=== PATIENT | female | born 2000 | race Caucasian/White ===

== ENCOUNTER 2019-05-02 10:47 | Inpatient (IN) ==
--- NOTE | 2019-05-02 12:07 | Emergency Department Note ---
Entered by Isabel Casiano acting as a scribe for Vinny Vergara DO History of Present Illness General Chief complaint: Mental Health Evaluation Stated complaint: DIZZY - SICK IN STOMACH - CRAMPS - SHAKY - HEADACH Time Seen by Provider: 05/02/19 11:24 Source: patient Limitations: no limitations History of Present Illness Provider complaint: Shakiness Onset (ago): day(s) 2 Location: head and abdomen Pain Consistency: + constant Maximum Pain Intensity: 6 Quality: + constant Associated symptoms: + diaphoresis, + fever/chills (chills), + headaches and + other (Positive: abdominal pain, shakiness, unable to sit still. Negative: SI, HI) The patient is a 19 year old female with no significant past medical history who presents to the ED with complaints of mental health evaluation. The patient reports she overdosed on Effexor 2 days ago because she was having an anxiety attack. She notes she was shaking and blacking out too much which caused her to take 5-10 pills of Effexor but then tried to throw them up. The patient reports she eventually called [facility] on and was released the same day. She states that by the time she got home she started feeling funny and was unable to sit still. The patient states she sweating but also freezing at the same time. She reports she has a headache, abdominal pain, and shakiness. The patient states she panics when she stands for too long and additionally states she hears someone saying her name and sees bugs on the wall. She notes she is unsure whether the medication triggered her schizophrenia or messed up her serotonin levels. The patient denies wanting to hurt or kill herself. . Home Medications Home Medications Medication Instructions Recorded Confirmed Type venlafaxine 75 mg PO DAILY 09/24/18 05/02/19 History albuterol sulfate [Ventolin HFA] 2 puff INHALATION QID PRN 05/02/19 05/02/19 History azithromycin 250 mg PO DAILY 05/02/19 05/02/19 History lamotrigine [Lamictal] 200 mg PO DAILY 05/02/19 05/02/19 History Allergies Allergy/AdvReac Type Severity Reaction Status Date / Time No Known Allergies Allergy Verified 05/02/19 11:58 Past Med/Surg History Medical History No acute medical problems Surgical History No significant past surgical history Family History Other No known problems Social History Preferred Language: Indian marital status: Single current occupational status: employed Feels Safe at Home: Yes Smoking Status: Never smoker Review of Systems See HPI for pertinent positives & negatives. and A total of 10 systems reviewed and were otherwise negative Physical Exam Vital Signs Vital Signs - 24 hr 05/02/19 10:59 05/02/19 12:50 Temperature 37.0 C Temperature Source Oral Pulse Rate 108 H 65 Pulse Rate [Radial] 65 Pulse Rhythm Regular Pulse Rhythm [Radial] Regular Respiratory Rate 20 18 Respiratory Effort / Characteristics Non-Labored Spontaneous Non-Labored Respiratory Depth Normal Normal Respiratory Pattern Regular Regular Blood Pressure 127/83 Blood Pressure [Left Arm] 131/75 Blood Pressure Mean 97 Blood Pressure Mean [Left Arm] 93 Pulse Oximetry 96 98 Oxygen Delivery Method Room Air Room Air Sepsis Recent Fever Within 48 Hours No Sepsis Action Taken by Nursing No Action Required CONSTITUTIONAL/VITAL SIGNS: Reviewed / noted above. GENERAL: Non-toxic in appearance. INTEGUMENTARY: Warm, dry, and [place]. HEAD: Normocephalic. EYES: without scleral icterus or trauma. ENT/OROPHARYNX: clear and moist. LYMPHADENOPATHY/NECK: Is supple without lymphadenopathy or meningismus. RESPIRATORY: Lungs clear and equal. CARDIOVASCULAR: Regular rate and rhythm. GI/ABDOMEN: Soft and nontender. No organomegaly or pulsatile mass. No rebound or guarding. Normal bowel sounds. EXTREMITIES: Warm and well perfused. BACK: No CVA tenderness. NEUROLOGICAL: Intact without focal deficits. No SI or HI. Mildly anxious. PSYCHIATRIC: normal affect. MUSCULOSKELETAL: Normally developed with good muscle tone. Course Course 1126: The patient was evaluated in room A5. A complete history and physical exam was performed. 1340: [employer] is going to do a 302 petition on the patient. 1500: The patient was signed out to Dr. Haley at the end of shift. Medical Decision Making Differential Diagnosis Differential diagnosis: Etiologies such as mood disorder, infection, hypoglycemia, electrolyte abnormalities, cardiac sources, intracerebral event, toxicologic, neurologic, as well as others were entertained. Medical Records Attestation: I reviewed the patient's medical records. Home Medications Current Medication List: was personally reviewed by me Laboratory Data Attestation: I reviewed the patient's lab results. Result diagrams: 05/02/19 12:23 05/02/19 12:23 Lab Results 05/02/19 05/02/19 05/02/19 Range/Units 11:15 11:15 12:23 WBC (4.8-10.8) K/uL RBC (4.2-5.4) M/uL Hgb (12.0-16.0) g/dL Hct (37-47) % MCV (80-100) fL MCH (25-34) pg MCHC (32-36) g/dL RDW Std Deviation (36.4-46.3) fL RDW Coeff of Kathleen (11.5-14.5) % Plt Count (130-400) K/uL MPV (7.4-10.4) fL Immature Gran % (Auto) % Neut % (Auto) % Lymph % (Auto) % [place] % (Auto) % Eos % (Auto) % Baso % (Auto) % Immature Gran # (Auto) (0.00-0.02) K/uL Neut # (Auto) (1.4-6.5) K/uL Lymph # (Auto) (1.2-3.4) K/uL [place] # (Auto) (0.11-0.59) K/uL Eos # (Auto) (0-0.5) K/uL Baso # (Auto) (0-0.2) K/uL Sodium (136-145) mmol/L Potassium (3.5-5.1) mmol/L Chloride (98-107) mmol/L Carbon Dioxide (21-32) mmol/L Anion Gap (3-11) BUN (7-18) mg/dl Creatinine (0.6-1.2) mg/dl Est Cr Clr Drug Dosing ml/min Est GFR ( Amer) Est GFR (Non-Af Amer) BUN/Creatinine Ratio (10-20) Glucose (70-99) mg/dl Calcium (8.5-10.1) mg/dl Total Bilirubin (0.2-1) mg/dl AST (15-37) U/L ALT (12-78) U/L Alkaline Phosphatase (45-117) U/L Total Protein (6.4-8.2) gm/dl Albumin (3.4-5.0) gm/dl Globulin (2.5-4.0) gm/dl Albumin/Globulin Ratio (0.9-2) HCG, Qual (Negative) Urine Color Dark Yellow Urine Appearance Clear (Clear) Urine pH 5.5 (4.5-7.5) Ur Specific [place] 1.034 H (1.000-1.030) Urine Protein Trace H (Negative) Urine Glucose (UA) Negative (Negative) Urine Ketones Trace H (Negative) Urine Blood Negative (Negative) Urine Nitrite Negative (Negative) Urine Bilirubin 1+ H (Negative) Urine Urobilinogen Negative (Negative) Ur Leukocyte Esterase Negative (Negative) Urine WBC (Auto) 5-10 H (0-5) /hpf Urine RBC (Auto) 0-4 (0-4) /hpf U Hyaline Cast (Auto) 10-30 H (0-5) /lpf U Epithel Cells (Auto) >30 H (0-5) /lpf Urine Bacteria (Auto) Negative (Negative) Urine Mucus Present A (None Prsent) Salicylates < 1.7 L (2.8-20) mg/dl Urine Opiates Screen Neg (Neg) Ur Methadone, Qual Neg (Neg) Acetaminophen < 2 L (10-30) ug/ml Urine Barbiturates Neg (Neg) Ur Phencyclidine (PCP) Neg (Neg) U Amphetamin/Meth Scrn Neg (Neg) MDMA (Ecstasy) Screen Neg (Neg) U Benzodiazepines Scrn Neg (Neg) Ur Cocaine Metabolite Neg (Neg) U Marijuana (THC) Screen Pos H (Neg) 05/02/19 05/02/19 05/02/19 Range/Units 12:23 12:23 12:23 WBC 6.16 (4.8-10.8) K/uL RBC 5.24 (4.2-5.4) M/uL Hgb 15.5 (12.0-16.0) g/dL Hct 44.7 (37-47) % MCV 85.3 (80-100) fL MCH 29.6 (25-34) pg MCHC 34.7 (32-36) g/dL RDW Std Deviation 40.6 (36.4-46.3) fL RDW Coeff of Kathleen 13.0 (11.5-14.5) % Plt Count 208 (130-400) K/uL MPV 10.7 H (7.4-10.4) fL Immature Gran % (Auto) 0.2 % Neut % (Auto) 73.2 % Lymph % (Auto) 17.4 % [place] % (Auto) 5.8 % Eos % (Auto) 3.1 % Baso % (Auto) 0.3 % Immature Gran # (Auto) 0.01 (0.00-0.02) K/uL Neut # (Auto) 4.51 (1.4-6.5) K/uL Lymph # (Auto) 1.07 L (1.2-3.4) K/uL [place] # (Auto) 0.36 (0.11-0.59) K/uL Eos # (Auto) 0.19 (0-0.5) K/uL Baso # (Auto) 0.02 (0-0.2) K/uL Sodium 137 (136-145) mmol/L Potassium 3.4 L (3.5-5.1) mmol/L Chloride 105 (98-107) mmol/L Carbon Dioxide 28 (21-32) mmol/L Anion Gap 4.0 (3-11) BUN 12 (7-18) mg/dl Creatinine 0.80 (0.6-1.2) mg/dl Est Cr Clr Drug Dosing 118.7 ml/min Est GFR ( Amer) 122.2 Est GFR (Non-Af Amer) 105.4 BUN/Creatinine Ratio 14.4 (10-20) Glucose 108 H (70-99) mg/dl Calcium 9.4 (8.5-10.1) mg/dl Total Bilirubin 0.9 (0.2-1) mg/dl AST 92 H (15-37) U/L ALT 125 H (12-78) U/L Alkaline Phosphatase 149 H (45-117) U/L Total Protein 8.6 H (6.4-8.2) gm/dl Albumin 4.2 (3.4-5.0) gm/dl Globulin 4.4 H (2.5-4.0) gm/dl Albumin/Globulin Ratio 1.0 (0.9-2) HCG, Qual Negative (Negative) Urine Color Urine Appearance (Clear) Urine pH (4.5-7.5) Ur Specific [place] (1.000-1.030) Urine Protein (Negative) Urine Glucose (UA) (Negative) Urine Ketones (Negative) Urine Blood (Negative) Urine Nitrite (Negative) Urine Bilirubin (Negative) Urine Urobilinogen (Negative) Ur Leukocyte Esterase (Negative) Urine WBC (Auto) (0-5) /hpf Urine RBC (Auto) (0-4) /hpf U Hyaline Cast (Auto) (0-5) /lpf U Epithel Cells (Auto) (0-5) /lpf Urine Bacteria (Auto) (Negative) Urine Mucus (None Prsent) Salicylates (2.8-20) mg/dl Urine Opiates Screen (Neg) Ur Methadone, Qual (Neg) Acetaminophen (10-30) ug/ml Urine Barbiturates (Neg) Ur Phencyclidine (PCP) (Neg) U Amphetamin/Meth Scrn (Neg) MDMA (Ecstasy) Screen (Neg) U Benzodiazepines Scrn (Neg) Ur Cocaine Metabolite (Neg) U Marijuana (THC) Screen (Neg) ECG Data Attestation: I personally reviewed and interpreted this ECG as follows: Indication: + other (Overdose ) Rate (beats per minute): 70 Rhythm: + sinus rhythm ECG Intervals/blocks: + Normal QT-c ECG ST segments: no ST elevation ECG Findings: no PVCs Blood Pressure Blood Pressure Findings: Normal blood pressure Blood Pressure Disposition: did not require urgent referral MDM Narrative This is a 19-year-old female who presents to the ED with a chief complaint of anxiety, headache, shakiness. The patient states that she had an anxiety attack the other day. She was seen at [facility] after she took too many Effexor tablets. She was evaluated there and discharged the same day on . The patient states that since that time she has been feeling shaky and having headaches. She also has recently seen some bugs on the [place] and heard some voices. The patient's vital signs reveal a tachycardia with a heart rate of 108. Her exam was unremarkable. She appears slightly anxious. Patient's laboratory studies revealed positive marijuana, CBC was normal, chemistry panel was unremarkable with exception of slight elevation of the AST and ALT. hCG was negative. The patient denies Tylenol overdose. Tylenol and a spirin were negative. The patient's EKG shows a sinus rhythm with a normal QTC. The patient will likely be admitted to 3 [facility]. Patient was signed out to Dr. Haley at the time of shift change (3pm). Impression & Plan Depression, Anxiety, Overdose Discharge Plan Visit Data Chief Complaint: Mental Health Evaluation Stated Complaint: DIZZY - SICK IN STOMACH - CRAMPS - SHAKY - HEADACH ED Provider: Vitor Haley Discharge Problem: Depression, Anxiety, Overdose Forms Stand Alone Forms: My [facility], Suicide Prevention Resources Prescriptions Prescriptions: No Action venlafaxine 75 mg capsule,extended release 24hr 75 mg PO DAILY RF: 0 lamotrigine [Lamictal] 200 mg tablet 200 mg PO DAILY RF: 0 azithromycin 250 mg tablet 250 mg PO DAILY RF: 0 albuterol sulfate [Ventolin HFA] 90 mcg/actuation HFA aerosol inhaler 2 puff INHALATION QID PRN (Reason: asthma) RF: 0 Discharge Problem: Depression Qualifiers: Depression Type: major depressive disorder Major depression recurrence: unspecified whether recurrent Active/Remission status: currently active Major depression episode severity: severe Psychotic features: with psychotic features Qualified Code(s): F32.3 - Major depressive disorder, single episode, severe with psychotic features Overdose Qualifiers: Encounter type: initial encounter Injury intent: intentional self-harm Qualified Code(s): T50.902A - Poisoning by unspecified drugs, medicaments and biological substances, intentional self-harm, initial encounter The scribe's documentation has been prepared under my direction and personally reviewed by me in its entirety. I confirm that the note above accurately reflects all work, treatment, procedures, and medical decision making performed by me.
[2019-05-02 12:41] LABS: Basophils # (auto) 0.02 K/uL (0-0.2); Basophils % (auto) 0.3 %; Eosinophils # (auto) 0.19 K/uL (0-0.5); Eosinophils % (auto) 3.1 %; Hematocrit (blood only) 44.7 % (37-47); Hemoglobin 15.5 g/dL (12.0-16.0); Immature Granulocytes # (auto) 0.01 K/uL (0.00-0.02); Immature Granulocytes % (auto) 0.2 %; Lymphocytes # (auto) 1.07 K/uL (1.2-3.4); Lymphocytes % (auto) 17.4 %; Mean Corpuscular Hemoglobin 29.6 pg (25-34); Mean Corpuscular Hgb Conc 34.7 g/dL (32-36); Mean Corpuscular Volume 85.3 fL (80-100); Mean Platelet Volume 10.7 fL (7.4-10.4); Monocytes # (auto) 0.36 K/uL (0.11-0.59); Monocytes % (auto) 5.8 %; Neutrophils # (auto) 4.51 K/uL (1.4-6.5); Neutrophils % (auto) 73.2 %; Platelet Count 208 K/uL (130-400); RDW Standard Deviation 40.6 fL (36.4-46.3); Red Blood Count 5.24 M/uL (4.2-5.4); White Blood Count 6.16 K/uL (4.8-10.8)
[2019-05-02 12:43] LABS: Appearance Urine Clear (Clear); Blood Urine Negative (Negative); Color Urine Dark Yellow; Glucose Urine UA Negative (Negative); Ketones Urine Trace (Negative); Leukocyte Esterase Urine Negative (Negative); Nitrite Urine Negative (Negative); Protein Urine Trace (Negative); Specific Gravity Urine 1.034 (1.000-1.030); Urobilinogen Urine Negative (Negative); pH Urine 5.5 (4.5-7.5)
[2019-05-02 12:46] LABS: Amphetamines+Metham, Urine Neg (Neg); Barbiturates, Urine Neg (Neg); Benzodiazepine, Urine Neg (Neg); Cocaine, Urine Neg (Neg); MDMA (Ecstacy), Urine Neg (Neg); Methadone, Urine Neg (Neg); Opiate, Urine Neg (Neg); Phencyclidine, Urine Neg (Neg)
[2019-05-02 12:50] LABS: Bacteria Urine Automated Negative (Negative); Bilirubin Urine 1+ (Negative); Epithelial Cell Urine Auto >30 /lpf (0-5); RBC Urine Automated 0-4 /hpf (0-4)
[2019-05-02 13:02] LABS: Ictotest Urine Positive (Negative)
[2019-05-02 13:03] LABS: Mucus Urine Present (None Prsent)
[2019-05-02 13:03] LABS: Albumin Level 4.2 gm/dl (3.4-5.0); BUN Creatinine Ratio 14.4 (10-20); Calcium 9.4 mg/dl (8.5-10.1); Creatinine Clr Calc Pharmacy 118.7 ml/min; Est GFR (African American) 122.2; Est GFR (Non-African American) 105.4; Potassium 3.4 mmol/L (3.5-5.1)
[2019-05-02 13:04] LABS: Acetaminophen < 2 ug/ml (10-30); Salicylate < 1.7 mg/dl (2.8-20)
[2019-05-02 13:05] LABS: Bilirubin,Total 0.9 mg/dl (0.2-1); Globulin 4.4 gm/dl (2.5-4.0); Total Protein 8.6 gm/dl (6.4-8.2)
[2019-05-02 13:17] LABS: Pregnancy Test, Serum Negative (Negative)
--- NOTE | 2019-05-02 14:53 | Emergency Department Note ---
ED Visit Note 1452: Signout from Dr. Pate. 19-year-old female with suicide attempt earlier this week week on her Effexor. Here for mental health evaluation. Medically cleared. Vital signs stable. Awaiting psychiatric evaluation. 1643: Patient accepted for admission by 3 S. . : Depression Qualifiers: Depression Type: major depressive disorder Major depression recurrence: unspecified whether recurrent Active/Remission status: currently active Major depression episode severity: severe Psychotic features: with psychotic features Qualified Code(s): F32.3 - Major depressive disorder, single episode, severe with psychotic features Overdose Qualifiers: Encounter type: initial encounter Injury intent: intentional self-harm Qualified Code(s): T50.902A - Poisoning by unspecified drugs, medicaments and biological substances, intentional self-harm, initial encounter
[2019-05-02] MEDS ORDERED: ALUMINUM/MAGNESIUM SUSP 30 ML UDC PO PRN (16:05)
[2019-05-02] MEDS ORDERED: MAGNESIUM HYDROXIDE SUSP 30 ML UDC PO PRN (16:05)
[2019-05-02] MEDS ORDERED: BISMUTH SUBSALICYLATE PER ML OMNICELL CHARGE PO PRN (16:05)
[2019-05-02] MEDS ORDERED: SODIUM CHLORIDE 0.65% NA SOLN 45 ML (OCEAN) PRN (16:05)
[2019-05-02] MEDS ORDERED: ALBUTEROL HFA 8 GM INHALER INH PRN (16:07)
[2019-05-02] MEDS: IBUPROFEN 200 MG TAB PO PRN (23:08)
[2019-05-03] MEDS: lamoTRIgine 25 MG TAB PO SCH (12:18)
[2019-05-03] MEDS: VENLAFAXINE HCL XR 75 MG CAPXR PO SCH (12:18)
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
--- NOTE | 2019-05-03 12:55 | Electrocardiogram Report ---
Test Reason : Blood Pressure : / mmHG Vent. Rate : 069 BPM Atrial Rate : 069 BPM P-R Int : 104 ms QRS Dur : 092 ms QT Int : 420 ms P-R-T Axes : 049 050 038 degrees QTc Int : 450 ms Sinus rhythm with short HI Otherwise normal ECG No previous ECGs available Confirmed by Jovany Chavez ([id number]) on 05/03/2019 12:55:17 PM Referred By: REFERRED SELF Confirmed By:Jovany Chavez
[2019-05-03] MEDS: IBUPROFEN 200 MG TAB PO PRN (23:39)
[2019-05-04] MEDS: lamoTRIgine 25 MG TAB PO SCH (09:36)
[2019-05-04] MEDS: VENLAFAXINE HCL XR 75 MG CAPXR PO SCH (09:36)
[2019-05-04] MEDS ORDERED: QUETIAPINE FUMARATE 25 MG TABLET PO PRN (09:44)
--- NOTE | 2019-05-04 10:43 | Psychiatric Progress Note ---
Date of Service May 04, 2019 Impression / Recommendations Impression 19 yo female with a history of mood lability, ongoing PTSD symptoms since teenager, s/p impulsive OD of Effexor which she denies was a suicide attempt. Presentation is consistent with bipolar disorder and complex PTSD, she has had poor response to antidepressants other than Effexor XR and had an incomplete trial of lamictal as an outpatient. Ongoing nightmares and aud perez last pm (05/03). (1) Bipolar 1 disorder, mixed: 05/03 --The patient was admitted to the [facility] ([facility]) on q15 min checks (behavioral with suicide precautions) for safety. The patient will participate in group, recreational, and milieu therapies and will be offered additional individual and family sessions as clinically appropriate. Risks/benefits/alternatives were reviewed re: restart of Effexor XR. At this point I think her sweating and discomfort are more likely discontinuation syndrome than any residual serotonin syndrome. Discussion included but was not l imited to FDA warnings re: SI and need for combination with a mood stabilizer. She agrees to retrial of Lamictal and understands resuming at 25 mg rather than 100 mg and retitrating. Risks/benefits/alternatives reviewed, discussion included but was not limited to risks of Skip's Johnsons reaction and interactions with control. States not sexually active at this time and reviewed teratogenecity. 05/04 --risks/benefits/alternatives reviewed re: Seroquel 25 mg q 6 hr prn panic (if vistaril ineffective) or perez. Discussion included but was not limited to need for monitoring for SI/TD/metabolic abnormalities. Will do fasting labs tomorrow in anticipation of standing medication option. No abnormal motor movements at baseline AIMS=0. Phone meeting with boyfriend for safety planning LARISSA. (2) Post traumatic stress disorder (PTSD): restart Effexor as above. monitor for dissociative symptoms Risk Factors Assessment Male: No : Yes Do You Have Access To A Gun?: No Mental Health Diagnoses: Yes Substance Use Disorders: No Previous Attempt: No Previous Psychiatric Hospitalization: No Protective Factors Assessment : No Responsible for Young Children: Yes Employed: Yes Interval History Chief Complaint "I had nightmares, heard things again last night". Review of Systems Sleep Information Total Hours of Sleep: 6.75 Sleep Comments: pt given vistaril per rn. pt on q-15 minute checks Meal Information Percent Meal Consumed - Breakfast: 10 Percent Meal Consumed - Lunch: 75 Percent Meal Consumed - Dinner: 100 Nutrition Comment: per meal record Subjective Subjective Patient was seen & assessed and interval progress reviewed with treatment team. Patient reports hearing a rg voice about "something bad" happening. Seems she was triggered by the news re: [place] and [place] as nightmares were related to bombs going off "everywhere" rather than past trauma. She appears less sweaty/tremulous today and is glad to be back on medication. Reviewed that lamictal titration will take time and would advise adding an atypical antipsychotic acutely as hoping for discharge in next few days and still experiencing intermittent perez. She is opposed to this given how she felt on Abilify but was willing to discuss prn Seroquel. Physical Exam Psychiatric Orientation: alert and oriented x 3 Apperance: appropriately dressed and + disheveled Eye Contact: + fair eye contact Speech: normal rate/rhythm/volume of speech Affect: + depressed affect and + tearful affect Mood: + anxious mood Thought Process: linear/logical thought process Thought Content: reality based without delusions Suicidal Thoughts: denies suicidal thoughts and denies suicidal plan Homicidal Thoughts: denies homicidal thoughts Hallucinations: no auditory hallucinations and no visual hallucinations Cognition: recent memory grossly intact and language grossly intact; + attention not intact Estimated Intelligence: consistent with education level Insight: + limited insight Judgement: + limited judgement Vital Signs (Past 24 Hours) Last Vital Signs Temp 36.6 C 05/04/19 06:50 Pulse 108 H 05/04/19 06:50 Resp 18 05/04/19 06:50 BP 131/67 05/04/19 06:50 Pulse Ox 97 05/02/19 16:46 A physical exam was performed in the ED by Dr. Vergara for the purposes of medical clearance. I accept that physical as correct and adequate for the purposes of the inpatient physical exam. Results & Data Current Inpatient Medications Current Inpatient Medications: Current Inpatient Medications Al Hydrox/Mg Hydrox/Simethicone (Maalox) 30 ml PO Q4H PRN PRN Reason: GI Upset Stop: 06/01/19 16:04 Albuterol (Ventolin Hfa) 2 puffs INH QID PRN PRN Reason: asthma Stop: 06/01/19 16:06 Last Admin: 05/04/19 10:25 Dose: 1 puffs Documented by: Bismuth Subsalicylate (Kaopectate) 15 ml PO PRN PRN PRN Reason: Loose Stool Stop: 06/01/19 16:04 Hydroxyzine HCl (Vistaril) 50 mg PO HSZ PRN PRN Reason: Insomnia Stop: 06/01/19 16:04 Last Admin: 05/03/19 23:38 Dose: 50 mg Documented by: Hydroxyzine HCl (Vistaril) 25 mg PO Q4H PRN PRN Reason: Anxiety Stop: 06/01/19 16:04 Ibuprofen (Advil) 400 mg PO QID PRN PRN Reason: Pain or Fever Stop: 06/01/19 16:06 Last Admin: 05/03/19 23:39 Dose: 400 mg Documented by: Lamotrigine (Lamictal) 25 mg PO QAM [facility] Stop: 06/02/19 10:59 Last Admin: 05/04/19 09:36 Dose: 25 mg Documented by: Magnesium Hydroxide (Milk Of Magnesia) 30 ml PO DAILY PRN PRN Reason: Constipation Stop: 06/01/19 16:04 Quetiapine Fumarate (Seroquel) 25 mg PO Q6H PRN PRN Reason: hallucinations/panic (if vistaril ineffective for panic) Stop: 06/03/19 09:43 Last Admin: 05/04/19 10:25 Dose: 25 mg Documented by: Sodium Chloride ([place] Nasal) 1 - 2 sprays NA PRN PRN PRN Reason: Nasal Dryness/Congestion Stop: 06/01/19 16:04 Venlafaxine HCl (Effexor Extended Release) 75 mg PO QAM [facility] Stop: 06/02/19 10:59 Last Admin: 05/04/19 09:36 Dose: 75 mg Documented by: Mental Health & Subst Abuse Tx Therapist Name of Therapist: Nael Ellington [facility] Discharge Appointments Primary Care Physician Name Of Family Doctor: Clem Siegel
[2019-05-05] MEDS: IBUPROFEN 200 MG TAB PO PRN (00:28)
[2019-05-05] MEDS: lamoTRIgine 25 MG TAB PO SCH (07:59)
[2019-05-05] MEDS: VENLAFAXINE HCL XR 75 MG CAPXR PO SCH (07:59)
[2019-05-05 08:49] LABS: Glucose Fasting 114 mg/dl (70-99)
[2019-05-05 08:56] LABS: Chol HDL Ratio 6; Cholesterol 174 mg/dl (0-200); HDL Cholesterol 30 mg/dl; LDL Cholesterol Calculated 122 mg/dl; Triglycerides 108 mg/dl (0-150); VLDL Cholesterol 22 mg/dl
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
[2019-05-07 01:09] LABS: Marijuana Quant, GCMS Urine 4420 ng/mL (<5)
== END 2019-05-05 18:10 | disposition home or self-care (01) | DRG 885 ==
LOC: ED 10:47 → 3S 16:05